=== PATIENT | female | born 1985 | race Asian ===

== ENCOUNTER 2016-08-06 14:09 | Day surgery (SDC) | payer OTHER ==
[~2016-08-06] VITALS: Ht 172.7 cm; Wt 120.8 kg
[~2016-08-06 14:09] MED LIST: KETOROLAC TROMETHAMINE 60 MG/2 ML (IM) VIAL IM ONE; ONDANSETRON HCL 4 MG/2 ML VIAL IV PUSH ONE; PROPOFOL 200 MG/20 ML AMP IV ONE
[2016-08-06 15:05] VITALS: BP 135/88; PULSE 75; RESP 20; TEMP 97.9; O2SAT 99
[2016-08-06] MEDS ORDERED: PREN29TA PO (15:19)
[2016-08-06 15:36] LABS: AUTOMATED NEUTROPHIL # 5.7 TH/MM3 (1.8-7.7); BASOPHIL # 0.1 TH/MM3 (0-0.2); BASOPHIL % 0.9 % (0.0-2.0); EOSINOPHIL # 0.2 TH/MM3 (0-0.4); EOSINOPHIL % 2.2 % (0.0-4.0); HEMATOCRIT 35.4 % (35.0-46.0); HEMO FLAGS DIFF FINAL; LYMPH % 25.2 % (9.0-44.0); LYMPHOCYTE # 2.1 TH/MM3 (1.0-4.8); MEAN CELL VOLUME 85.6 FL (80.0-100.0); MEAN CORPUSCULAR HEMOGLOBIN 28.8 PG (27.0-34.0); MEAN CORPUSCULAR HGB CONC 33.6 % (32.0-36.0); MONO % 4.7 % (0.0-8.0); PLATELET COUNT 406 TH/MM3 (150-450); RED BLOOD COUNT 4.14 MIL/MM3 (4.00-5.30); RED CELL DISTRIBUTION WIDTH 13.9 % (11.6-17.2); WHITE BLOOD COUNT 8.5 TH/MM3 (4.0-11.0)
[2016-08-06] MEDS ORDERED: INSULIN HUMAN REGULAR 1,000 UNITS/10 ML VIAL SQ PRN (16:00)
[2016-08-06] MEDS ORDERED: LACTATED RINGER'S 1000 ML IV SCH (16:00)
[2016-08-06] MEDS ORDERED: METOPROLOL TARTRATE 25 MG TAB PO PRN (16:00)
[2016-08-06] MEDS ORDERED: SODIUM CHLORID 0.9% 500 ML IV SCH (16:00)
[2016-08-06 16:05] LABS: ALKALINE PHOSPHATASE 70 U/L (45-117); ALT (GPT) 28 U/L (10-53); ANION GAP 11 MEQ/L (5-15); AST (GOT) 22 U/L (15-37); BICARBONATE 24.9 MEQ/L (21.0-32.0); BLOOD UREA NITROGEN 8 MG/DL (7-18); CHLORIDE 101 MEQ/L (98-107); GLOMERULAR FILTRATION RATE 121 ML/MIN (>89); POTASSIUM 3.7 MEQ/L (3.5-5.1); SODIUM (NA) 137 MEQ/L (136-145); TOTAL BILIRUBIN ADULT 0.4 MG/DL (0.2-1.0)
[2016-08-06 16:13] LABS: BLOOD, URINE LARGE (NEG); COMMENT (UR) CULT NOT INDICATED; CULTURE IF INDICATED CULT NOT INDICATED; GLUCOSE,URINE NEG (NEG); KETONE, URINE NEG (NEG); MUCUS URINE FEW /lpf (OCC); NITRITE,URINE NEG (NEG); PH, URINE 5.5 (5.0-8.5); SQUAMOUS EPITHELIAL CELL URINE 2 /hpf (0-5); URINE COLOR YELLOW (YELLW/STRAW)
[2016-08-06 20:15] VITALS: TEMP 98.7
[2016-08-06] MEDS ORDERED: DO NOT ADM ANY ANTICOAGULANT DRUGS XX PRN (20:15)
[2016-08-06] MEDS ORDERED: MIDAZOLAM HCL 2 MG/2 ML VIAL ONE (20:45)
[2016-08-06 21:00] VITALS: BP 121/72; PULSE 77; RESP 16; O2SAT 97
--- NOTE | 2016-08-12 00:06 | MP ---
cc: Sangita ALMAZAN. DATE OF SURGERY: 08/06/2016 PREOPERATIVE DIAGNOSIS: 1. Intrauterine at 8 weeks. 2. Intrauterine demise. POSTOPERATIVE DIAGNOSIS 1. Intrauterine at 8 weeks. 2. Intrauterine demise. PROCEDURE: Dilation, evacuation ANESTHESIA General. SURGEON: Yazmin Almazan MD. FINDINGS: Uterus 8 to 10 weeks size. Cervix was closed. There was no adnexal masses. The D&E revealed a normal amount of products of conception. COMPLICATIONS: None. COUNTS: Correct. ESTIMATED BLOOD LOSS: 100 cc FLUIDS: Crystalloid. The patient tolerated the procedure well and went to the Recovery Room in good condition. DESCRIPTION OF PROCEDURE: The patient was taken to the operating room identified by name band and verbally, given a general anesthetic, carefully placed in dorsolithotomy position, prepped and draped for vaginal surgery in the usual fashion. Time-out was taken and we went on to proceed with the surgery. The patient was examined under anesthesia with the above findings. The weighted speculum was placed in the vagina. The anterior lip of the cervix was grasped with single-tooth tenaculum. Cervix was serially dilated without difficulty and using #8 cannula the products of conception were removed in toto. Sharp curet followed, again followed by the suction. She tolerated the procedure well and went to the recovery room in good condition. MD MARY Sumner/COLTEN /2:32 PM /11:58 PM
== END 2016-08-06 22:30 | disposition home or self-care (01) ==
LOC: HSDC 14:09
PROVIDERS: ATTEND Obstetrics & Gynecology
DX: O02.1 Missed abortion (principal)
CPT/HCPCS: 01965; 59820; 80053; 81001; 85025; 86900; 86901; 88305; J1885; J2250; J2405; J3010